=== PATIENT | male | born 1955 | race African-American/Black ===

== ENCOUNTER 2017-09-12 13:36 | Emergency (ER) | payer BC ==
[2017-09-12 14:03] LABS: #Eosinphils 0.1 thou/uL (0.0-0.7); #Lymphocytes 1.6 thou/uL (1.20-3.40); #Monocytes 0.7 thou/uL (0.11-0.59); #Neutrophils 7.1 thou/uL (1.40-6.50); %Basophils 0.1 % (0.0-1.0); %Eosinophils 1.5 % (0.0-10.0); %Lymphocytes 16.7 % (21.0-51.0); %Monocytes 7.6 % (0.0-10.0); %Neutrophils 74.2 % (42.0-75.0); Hemoglobin 8.9 g/dL (14.0-18.0); Mean Corpuscular HGB CONC 32.9 g/dL (32.0-36.0); Mean Corpuscular Hemoglobin 28.2 pg (27.0-31.0); Mean Corpuscular Volume 85.8 fl (80.0-94.0); Mean Platelet Volume 5.5 fL (7.4-10.4); Platelet Count 431 thou/uL (130-400); Red Blood Cell (RBC) Count 3.13 mill/uL (4.70-6.10); White Blood Cell (WBC) Count 9.6 thou/uL (4.8-10.8)
[2017-09-12 14:36] LABS: CKMB 0.9 ng/mL (0-6.6); Troponin I Less than 0.010 ng/mL (< 0.028)
[2017-09-12 14:51] LABS: ALT (SGPT) 8 U/L (8-55); AST (SGOT) 13 U/L (5-34); Albumin 3.2 g/dL (3.4-4.8); Alkaline Phosphatase 52 U/L (40-150); Anion Gap 10 mmol/L (10-20); BUN (Urea Nitrogen) 21 mg/dL (8.4-25.7); Bilirubin, Total 0.5 mg/dL (0.2-1.2); CK (CPK) 168 U/L (30-200); Calc. Creatinine Clearance 0 mL/min (70-130); Calcium 8.8 mg/dL (7.8-10.44); Carbon Dioxide 21 mmol/L (23-31); Chloride 105 mmol/L (98-107); Estimated GFR-MDRD 58; Globulin 5.6 g/dL (2.4-3.5); Glucose 127 mg/dL (80-115); Lipase 5 U/L (8-78); Potassium 4.1 mmol/L (3.5-5.1); Protein, Total 8.8 g/dL (5.8-8.1); Sodium 132 mmol/L (136-145)
[2017-09-12 15:00] LABS: Bilirubin Negative (Negative); Blood, Urine Large (Negative); Clarity TURBID (Clear); Glucose, Urine (Dipstick) Negative (Negative); Leukocyte Large (Negative); Nitrite Positive (Negative); Protein, Urine (Dipstick) 300 mg/dL (Neg-Trace); Specific Gravity, Urine 1.013 (1.002-1.036)
[2017-09-12 15:09] LABS: Bacteria/HPF 4+ HPF (None Seen); Pathc Cast-AUWi Flag 2.45 (0-2.49); RBC/HPF GREATER THAN 50-TNTC HPF (0-3); Squamous Epithelial 0-3 HPF (0-3)
--- NOTE | 2017-09-12 15:17 | CT ---
CT OF BRAIN PERFORMED WITHOUT CONTRAST ENHANCEMENT: HISTORY: Fall with head injury. COMPARISON: 05/29/15 exam. FINDINGS: There is mild ventricular and sulcal prominence which is felt to be fairly age appropriate. There ar e no signs of intracerebral hemorrhage or extraaxial fluid collections. No mass lesion or mass effec t. The posterior scalp changes with associated air are seen on the previous examination and are stab le. Mastoid air cells and visualized sinuses are clear. IMPRESSION: 1. Posterior scalp changes stable as compared to the prior exam. I assume that this is some type of chronic process. 2. No acute intracranial abnormalities. POS: [facility]
--- NOTE | 2017-09-12 15:19 | CT ---
CT OF CERVICAL SPINE PERFORMED WITHOUT CONTRAST ENHANCEMENT: HISTORY: Fall with neck pain. History of an abscess behind the ear for 2 years with drainage. FINDINGS: The soft tissue changes of the posterior scalp region and mass-like areas have been noted on previous exams. The vertebral bodies are normal in height. There is degenerative change along the course of the spin e, but disk narrowing is most pronounced at C4-5, C5-6, and C6-7. Facets are in normal alignment. S ome borderline bilateral foraminal narrowing at C3-4. Mild bilateral foraminal stenosis at C4-5 and C5-6. There is no CT evidence for a fracture. IMPRESSION: No CT evidence of fracture of the cervical spine. POS: [facility]
--- NOTE | 2017-09-12 15:20 | RAD ---
LEFT KNEE 4 VIEWS: HISTORY: Injury. FINDINGS: There is thickening of the patellar tendon. No acute displaced fracture or malalignment. Mild media l compartment joint space narrowing. There are enthesopathic changes of the tubercle tuberosity. IMPRESSION: No acute abnormality. Mild chronic changes. POS: [facility]
--- NOTE | 2017-09-12 15:20 | RAD ---
CHEST 1 VIEW: Date: 09/12/17 HISTORY: Chest pain. Altered mental status. COMPARISON: Chest radiograph dated 05/27/15. FINDINGS: Lungs are clear. No pneumothorax or effusion. Cardiac silhouette and mediastinal contours within norm al limits. Radiopaque foreign object projects over left hemithorax. No acute osseous abnormality. IMPRESSION: No acute intrathoracic abnormality. POS: [facility]
[2017-09-12 15:25] LABS: Crystals/HPF 1+ TRIPLE PHOS HPF (Negative); Hyaline Casts/LPF NONE SEEN LPF (0-3 Hyaline)
[2017-09-12] MEDS ORDERED: cefTRIAXone\\ROCEPHIN 2 GM VIAL ONE (15:36)
== END 2017-09-12 16:18 | disposition home or self-care (01) ==
LOC: ERS 13:36
DX: N30.01 Acute cystitis with hematuria (principal); D64.9 Anemia, unspecified; Z79.84 Long term (current) use of oral hypoglycemic drugs; Z79.899 Other long term (current) drug therapy
CPT/HCPCS: 36415; 36416; 70450; 71045; 72125; 80053; 81003; 81015; 82274; 82553; 83605; 83690; 84484; 85025; 87040; 87070; 87077; 87086; 87186; 87205; 93005; 96361; 96365; J0696

== ENCOUNTER 2020-09-17 20:01 | Emergency (ER) | payer MEDICARE ==
[2020-09-17] MEDS ORDERED: Glycopyrrolate 0.2 MG/ML 5 ML SYRINGE ONE (21:33)
[2020-09-17] MEDS ORDERED: Dexamethasone 20 MG/5 ML VIAL ONE (21:33)
[2020-09-17] MEDS ORDERED: PROPOFOL 200 MG/20 ML VIAL ONE (21:33)
[2020-09-17] MEDS ORDERED: Ondansetron PF 4 MG/2 ML Vial ONE (21:33)
[2020-09-17] MEDS ORDERED: Succinylcholine 200 MG/10 ml SYRINGE FS ONE (21:33)
[2020-09-17 21:46] LABS: SARS-CoV-2 NAA Rapid Test Not Detected (NotDetected)
[2020-09-17] MEDS ORDERED: hydrALAZINE 20 MG/ML VIAL ONE (22:11)
[2020-09-17] MEDS ORDERED: Fentanyl 100 MCG/2 ML VIAL ONE (22:21)
== END 2020-09-17 21:32 | disposition admitted as inpatient to this hospital (09) ==
LOC: ERS 20:01
DX: T17.228A Food in pharynx causing other injury, initial encounter (principal); E78.00 Pure hypercholesterolemia, unspecified; E11.22 Type 2 diabetes mellitus with diabetic chronic kidney disease; D64.9 Anemia, unspecified; N18.6 End stage renal disease; Z86.73 Personal history of transient ischemic attack (TIA), and cerebral infarction without residual deficits
CPT/HCPCS: 93005; U0002; U0005; 99284; J0360; J1100; J2405; J2704; J3010

== ENCOUNTER 2021-01-14 08:04 | Emergency (ER) | payer MEDICARE ==
[2021-01-14 08:56] LABS: #Basophils 0.1 thou/uL (0.0-0.2); #Eosinphils 0.1 thou/uL (0.0-0.7); #Monocytes 0.4 thou/uL (0.11-0.59); #Neutrophils 2.7 thou/uL (1.40-6.50); %Basophils 1.1 % (0.0-1.0); %Eosinophils 1.2 % (0.0-10.0); %Lymphocytes 37.7 % (21.0-51.0); %Monocytes 7.4 % (0.0-10.0); %Neutrophils 52.6 % (42.0-75.0); Hemoglobin 12.3 g/dL (14.0-18.0); Mean Corpuscular HGB CONC 32.8 g/dL (32.0-36.0); Mean Corpuscular Hemoglobin 30.6 pg (27.0-31.0); Mean Corpuscular Volume 93.2 fL (78.0-98.0); Mean Platelet Volume 6.5 fL (7.4-10.4); Platelet Count 323 thou/uL (130-400); RBC Distribution Width 12.8 % (11.5-14.5); Red Blood Cell (RBC) Count 4.01 mill/uL (4.70-6.10); White Blood Cell (WBC) Count 5.2 thou/uL (4.8-10.8)
[2021-01-14 09:24] LABS: ALT (SGPT) 19 U/L (8-55); AST (SGOT) 16 U/L (5-34); Albumin 4.1 g/dL (3.4-4.8); Alkaline Phosphatase 53 U/L (40-110); Anion Gap 16 mmol/L (10-20); BUN (Urea Nitrogen) 18 mg/dL (8.4-25.7); Bilirubin, Total 1.1 mg/dL (0.2-1.2); Calc. Creatinine Clearance 0 mL/min (70-130); Calcium 9.5 mg/dL (7.8-10.44); Carbon Dioxide 20 mmol/L (23-31); Chloride 104 mmol/L (98-107); Globulin 4.6 g/dL (2.4-3.5); Glucose 119 mg/dL (80-115); Protein, Total 8.7 g/dL (5.8-8.1); Sodium 136 mmol/L (136-145)
[2021-01-14] MEDS ORDERED: Iopamidol-370 76% 500 ML 1 ML ONE (10:30)
[2021-01-14 11:43] LABS: Bilirubin Negative (Negative); Blood, Urine 1+ (Negative); Clarity Clear (Clear); Glucose, Urine (Dipstick) Normal (Negative); Ketone, Urine 20 mg/dL (Negative); Leukocyte 250 Leu/uL (Negative); Nitrite Negative (Negative); Protein, Urine (Dipstick) 10 mg/dL (Neg-Trace); Specific Gravity, Urine 1.041 (1.002-1.036); Squamous Epithelial None Seen HPF (0-3); Urobilinogen Normal mg/dL (Less than 2); pH, Urine 5.5 (5.0-9.0)
[2021-01-14 11:46] LABS: Bacteria/HPF 1+ HPF (None Seen)
== END 2021-01-14 10:58 | disposition home or self-care (01) ==
LOC: ERS 08:04
DX: K40.90 Unilateral inguinal hernia, without obstruction or gangrene, not specified as recurrent (principal); I12.0 Hypertensive chronic kidney disease with stage 5 chronic kidney disease or end stage renal disease; E11.22 Type 2 diabetes mellitus with diabetic chronic kidney disease; N18.6 End stage renal disease; D64.9 Anemia, unspecified; E78.00 Pure hypercholesterolemia, unspecified; Z79.84 Long term (current) use of oral hypoglycemic drugs; Z86.73 Personal history of transient ischemic attack (TIA), and cerebral infarction without residual deficits; Z79.899 Other long term (current) drug therapy
CPT/HCPCS: 36415; 74177; 80053; 81003; 81015; 83605; 85025; 87077; 87086; 87186; Q9967

== ENCOUNTER 2021-01-19 14:51 | Outpatient (CLI) | payer MEDICARE ==
[2021-01-19 15:42] LABS: #Eosinphils 0.1 10x3/uL (0.0-0.5); #Monocytes 0.4 10x3/uL (0.0-1.1); #Neutrophils 2.2 10x3/uL (1.5-8.4); %Basophils 0.7 % (0.0-2.0); %Eosinophils 1.8 % (0.0-6.0); %Lymphocytes 39.3 % (18.0-47.0); %Monocytes 9.3 % (0.0-10.0); %Neutrophils 48.7 % (40.0-75.0); Hemoglobin 10.8 g/dL (13.5-17.5); Mean Corpuscular HGB CONC 32.8 g/dL (32.0-36.0); Mean Corpuscular Hemoglobin 29.9 pg (27.0-33.0); Mean Corpuscular Volume 91.1 fl (81.2-95.1); Mean Platelet Volume 9.2 fl (7.4-10.4); Platelet Count 306 10x3/uL (150-450); Red Blood Cell (RBC) Count 3.61 10x6/uL (4.32-5.72); White Blood Cell (WBC) Count 4.4 10x3/uL (3.5-10.5)
[2021-01-19 16:05] LABS: Anion Gap 13 mmol/L (10-20); BUN (Urea Nitrogen) 15 mg/dL (8.4-25.7); Calc. Creatinine Clearance 0 mL/min (70-130); Calcium 9.7 mg/dL (7.8-10.44); Carbon Dioxide 21 mmol/L (23-31); Chloride 106 mmol/L (98-107); Glucose 106 mg/dL (80-115); Potassium 4.4 mmol/L (3.5-5.1); Sodium 136 mmol/L (136-145)
[2021-01-20 08:32] LABS: SARS-CoV-2 PCR by NAA Not Detected (NotDetected)
== END 2021-01-19 14:52 | disposition home or self-care (01) ==
LOC: LABBT 14:51
PROVIDERS: ATTEND Surgery
DX: Z01.818 Encounter for other preprocedural examination (principal); K40.90 Unilateral inguinal hernia, without obstruction or gangrene, not specified as recurrent; Z20.822 Contact with and (suspected) exposure to COVID-19
CPT/HCPCS: 80048; 85025; U0003; U0005; 93005; 93010

== ENCOUNTER 2021-01-24 08:08 | Day surgery (SDC) | payer MEDICARE ==
[2021-01-24] MEDS ORDERED: Bupivacaine 0.25% HCL 30 ML VIAL ONE (10:40)
[2021-01-24] MEDS ORDERED: Lidocaine 1% w/Epinephrine 1:100K 20 ML VIAL ONE (10:40)
[2021-01-24] MEDS ORDERED: Fentanyl 100 MCG/2 ML VIAL ONE (11:13)
[2021-01-24] MEDS ORDERED: SUGAMMADEX SODIUM 200 MG/2 ML VIAL ONE (11:13)
[2021-01-24] MEDS ORDERED: Ondansetron PF 4 MG/2 ML Vial ONE (11:40)
[2021-01-24] MEDS ORDERED: Lidocaine 1% PF 5 ML VIAL ONE (11:40)
[2021-01-24] MEDS ORDERED: Rocuronium Bromide 10 MG/ML (10ML VIAL) ONE (11:40)
[2021-01-24] MEDS ORDERED: Glycopyrrolate 0.2 MG/ML 5 ML SYRINGE ONE (11:40)
[2021-01-24] MEDS ORDERED: PROPOFOL 200 MG/20 ML VIAL ONE (11:40)
[2021-01-24] MEDS ORDERED: Bupivacaine PF 0.5% 30 ML VIAL ONE (12:03)
[2021-01-24] MEDS ORDERED: HYDROcodone/Acetaminophen 5/325 mg Tablet ONE ×3 (14:23→14:25)
== END 2021-01-24 15:05 | disposition home or self-care (01) ==
LOC: SDC 08:08
PROVIDERS: ATTEND Surgery
PROC: 0YU50JZ Supplement Right Inguinal Region with Synthetic Substitute, Open Approach (ICD-10-PCS; principal; 2021-01-24)
DX: K40.90 Unilateral inguinal hernia, without obstruction or gangrene, not specified as recurrent (principal); E11.9 Type 2 diabetes mellitus without complications; I10 Essential (primary) hypertension; I51.89 Other ill-defined heart diseases; I35.0 Nonrheumatic aortic (valve) stenosis; H91.90 Unspecified hearing loss, unspecified ear; Z98.890 Other specified postprocedural states
CPT/HCPCS: A4306; C1781; J3010; S0020